=== PATIENT | female | born 1980 | race Two or more races ===

== ENCOUNTER → 2018-07-15 | Outpatient (CLI) | payer BC ==
--- NOTE | 2018-07-15 09:30 | KCIC ---
EXAM: Abdomen sonogram. HISTORY: Pain. TECHNIQUE: Sonographic imaging of the abdomen was performed. COMPARISON: None. FINDINGS: The liver is enlarged. There is hepatic steatosis. The gallbladder is not seen. The common bile duct is slightly dilated for patient age, measuring 6.5 mm. The kidneys are unremarkable. The pancreatic tail is obscured due to bowel gas. The spleen is normal in size. There are incidental splenic granulomas. The aorta is normal in caliber. The inferior vena cava is patent. There is prominent bowel gas limiting evaluation of the midline structures. IMPRESSION: 1. Hepatomegaly and hepatic steatosis. 2. Nonvisualization of the gallbladder. This may be due to contraction or prior cholecystomy. 3. Mild common bile duct dilatation. If there is a history of prior cholecystectomy, this likely due to reservoir effect. Electronically signed by: Hawa Evans MD (07/15/2018 9:27 AM) [id number]
== END | disposition home or self-care (01) ==
LOC: KCIC US 08:20
PROVIDERS: ATTEND Family Medicine
DX: K76.0 Fatty (change of) liver, not elsewhere classified (principal); K83.8 Other specified diseases of biliary tract; D73.89 Other diseases of spleen; Z90.49 Acquired absence of other specified parts of digestive tract
CPT/HCPCS: 76700